=== PATIENT | male | born 1945 | race Caucasian/White ===

== ENCOUNTER → 2017-01-23 | Outpatient (CLI) | payer OTHER, MEDICARE ==
[~2017-01-23] MED LIST: COU2 PO; EZET10TA3 PO; LISI-327 PO; LORA1TAB PO; LORA2VIA3; LORAZEPAM; SIMV20TA2 PO; SOTA160T PO; [UNRECOGNIZED DRUG - OTHER]
--- NOTE | 2017-01-23 14:41 | RADRPT ---
PROCEDURE: US venous right lower extremity CLINICAL INDICATION: Right lower extremity pain. TECHNIQUE: Multiple longitudinal and transverse images of the right lower extremity veins were obt ained with kennedy scale and color Doppler imaging. 2D grayscale imaging with compression, color Doppl er flow, and augmentation was performed. The calf veins were interrogated as well. COMPARISON: None available. FINDINGS: The right common femoral, superficial femoral, and popliteal veins are normally compressible through out. There is normal color Doppler flow within the vessels and all the vessels are augmentable. The calf veins are visualized and are equally unremarkable. IMPRESSION: 1. No evidence of a deep vein thrombosis within the right lower extremity. RPTAT: GG .Darinel Mahoney MD, MD Date Time Electronically viewed and signed by .Darinel Mahoney MD, MD on 01/23/2017 14:41 .P/
== END | disposition home or self-care (01) ==
LOC: VAS 13:53
PROVIDERS: ATTEND Orthopaedic Surgery
DX: M79.661 Pain in right lower leg (principal)
CPT/HCPCS: 93971

== ENCOUNTER 2017-02-25 09:30 | Inpatient (IN) | payer OTHER, MEDICARE ==
[~2017-02-25] VITALS: Ht 175.3 cm; Wt 83.0 kg
[2017-03-04] VITALS (17 sets, daily range): BP systolic 91–123; BP diastolic 39–88; PULSE 58–79; RESP 15–18; Ht 175.3 cm; Wt 83.0 kg
[2017-03-04] MEDS ORDERED: ROCURONIUM 50 MG INJ ONE (07:00)
[2017-03-04] MEDS ORDERED: SUCCINYLCHOLINE CHLORIDE 100 MG/5 ML SYG IV ONE (07:00)
[2017-03-04] MEDS ORDERED: DESFLURANE 15 MIN ONE (07:00)
[2017-03-04] MEDS ORDERED: [UNRECOGNIZED DRUG - CODE] PO (11:30)
[2017-03-04] MEDS ORDERED: AMLO5TAB4 PO (11:30)
[2017-03-04] MEDS ORDERED: PANT40TA3 PO (11:31)
[2017-03-04] MEDS ORDERED: CEFAZOLIN 2 GM/50 ML (PMX) 50 ML IVPB ONE (12:00)
[2017-03-04] MEDS ORDERED: LACTATED RINGER'S 1,000 ML IV* SCH (12:00)
[2017-03-04 13:01] LABS: INR 0.96; PROTIME 12.8 Sec (12.2-14.2)
[2017-03-04 13:02] LABS: PARTIAL THROMBOPLASTIN TIME 33.2 Sec (25.0-35.0)
--- NOTE | 2017-03-04 13:19 | HPN ---
Date/Time of Note Date/Time of Note DATE: 03/04/17 TIME: 13:19 Interval H&P Admission Note Pt. seen H&P reviewed: No system changes LORE METZ PA-C Mar 04, 2017 13:19
[2017-03-04] MEDS ORDERED: DIPHENHYDRAMINE 50 MG INJ IV PRN ×2 (13:30→16:00)
[2017-03-04] MEDS ORDERED: HYDROmorphONE 0.2 MG/ML PCA IV SCH (13:30)
[2017-03-04] MEDS ORDERED: ONDANSETRON 4 MG INJ IV PRN ×2 (13:30→16:00)
[2017-03-04] MEDS ORDERED: BISACODYL 10 MG SUPP PR PRN (13:30)
[2017-03-04] MEDS ORDERED: CEPASTAT LOZENGE MT PRN (13:30)
[2017-03-04] MEDS ORDERED: CYCLOBENZAPRINE 10 MG TAB PO PRN (13:30)
[2017-03-04] MEDS ORDERED: ACETAMINOPHEN 325 MG TAB PO PRN (13:30)
[2017-03-04] MEDS ORDERED: AL HYDROX/MG HYDROX/SIMETH 30 ML CUP PO PRN (13:30)
[2017-03-04] MEDS ORDERED: NALOXONE (0.4 MG/ML) INJ IV PRN (13:30)
[2017-03-04] MEDS ORDERED: HYDROmorphONE 1 MG/ML SYG IV PRN (13:30)
[2017-03-04] MEDS ORDERED: ZOLPIDEM 5 MG TAB PO PRN (13:30)
[2017-03-04] MEDS ORDERED: BUPIVACAINE 0.25%/EPI (SDV) 10 ML INJ ONE (13:58)
[2017-03-04] MEDS ORDERED: BUPIVACAINE 0.25% (MPF) 30 ML INJ ONE (13:58)
[2017-03-04] MEDS ORDERED: PROPOFOL 20 ML ONE (14:02)
[2017-03-04] MEDS ORDERED: MIDAZOLAM 1 MG/ML 2 ML INJ ONE (14:02)
[2017-03-04] MEDS ORDERED: LIDOCAINE 1% (MDV) 20 ML INJ ONE (14:02)
[2017-03-04] MEDS ORDERED: CA CHLORIDE 10% 10 ML SYRINGE ONE (14:04)
[2017-03-04] MEDS ORDERED: THROMBIN 5000 UNIT VIAL ONE (14:04)
[2017-03-04] MEDS ORDERED: SURGIFOAM POWDER 1 GM KIT ONE (14:04)
[2017-03-04] MEDS ORDERED: POLYMYXIN/BACITRACIN 1L IRRIG IRR ONE (14:21)
[2017-03-04] MEDS ORDERED: THROMBIN 5000 UNIT VIAL TOP ONE (14:21)
[2017-03-04] MEDS ORDERED: CEFAZOLIN 1 GM INJ ONE (14:21)
[2017-03-04] MEDS ORDERED: BUPIVACAINE 0.25%/EPI (SDV) 10 ML INJ INJ ONE (14:21)
[2017-03-04] MEDS ORDERED: ONDANSETRON 4 MG INJ ONE (14:27)
[2017-03-04] MEDS ORDERED: DEXAMETHASONE 4 MG/ML 1 ML INJ ONE (14:27)
[2017-03-04] MEDS ORDERED: FAMOTIDINE 20 MG INJ ONE (14:27)
[2017-03-04] MEDS ORDERED: LABETALOL HCL 20MG INJ ONE (14:57)
[2017-03-04] MEDS ORDERED: hydrALAzine 20 MG INJ ONE (15:38)
[2017-03-04] MEDS ORDERED: SUGAMMADEX SODIUM 200 MG/2 ML VIAL IV ONE (15:40)
--- NOTE | 2017-03-04 15:43 | OPR ---
Date/Time of Note Date/Time of Note DATE: 03/04/17 TIME: 15:42 Operative Report Preoperative Diagnosis right L5-S1 HNP Postoperative Diagnosis right L5-S1 HNP Operation/Procedure Performed right L5-S1 discectomy Surgeon: ERIBERTO CALLES MD bacteriology research assistant: LORE METZ PA-C Anesthesia Type: general Estimated Blood Loss: 10 - 50 ml's Specimens disk Complications: no ERIBERTO CALLES MD Mar 04, 2017 15:43
[2017-03-04] MEDS ORDERED: hydrALAzine 20 MG INJ IV PRN (16:00)
[2017-03-04] MEDS ORDERED: LABETALOL HCL 20MG INJ IV PRN (16:00)
[2017-03-04] MEDS ORDERED: MEPERIDINE 25 MG INJ IV PRN ×2 (16:00)
[2017-03-04] MEDS ORDERED: HYDROmorphONE (0.2 MG/ML) 10ML SYG IV PRN ×2 (16:00)
--- NOTE | 2017-03-04 16:45 | OPR ---
DATE OF OPERATION: 03/04/2017 PREOPERATIVE DIAGNOSES: 1. History of L3-4, L4-5 instrumented fusion. 2. Right L5-S1 disc herniation. 3. Right lumbosacral radiculopathy. POSTOPERATIVE DIAGNOSES: 1. History of L3-4, L4-5 instrumented fusion. 2. Right L5-S1 disc herniation. 3. Right lumbosacral radiculopathy. PROCEDURES: 1. Right L5 hemilaminotomy with right L5-S1 lumbar microdiskectomy. 2. Lateral localizing film x2. 3. Use of operative microscope. 4. Use of C-arm fluoroscopy with interpretation without radiologist present. 5. Intraoperative neuro monitoring (1.5 hours). PRIMARY SURGEON: Dr. Hector Khan. POULTRY SCIENTIST: LETICIA Hodges. NEED FOR MEDICAL OFFICE REP: facility assistant was required to retract the neurovascular elements. FINDINGS: Neuro monitoring revealed right L5 amplitude down 40 percent, right S1 amplitude down to 60 percent, left S1 amplitude down 10 percent. At the end of the case the nerve signal returned to normal. The patient had right side extrusion at L5- S1. There was scar tissue in the area from the previous surgery. ESTIMATED BLOOD LOSS: Less than 30 cc. DRAINS: None. SPECIMENS: Disc. COMPLICATIONS: None. ANESTHESIOLOGIST: Dr. Santillan. ANESTHESIA: General. REASON FOR PROCEDURE: Procedure this is a 71-year-old gentleman who previously had undergone fusion from L3-L5. He developed a disc herniation at L5-S1 on the right, which became symptomatic. He developed weakness and failed conservative measures, therefore, recommended he undergo the above procedure. Preoperatively, discussed risks, benefits, alternatives, he understood and wished to proceed. DESCRIPTION OF THE PROCEDURE IN DETAIL: The patient was identified in the preoperative holding area, given Ancef antibiotics, an taken to the operating room, where he was successfully placed under general anesthesia. Neuro monitors were placed. Sequential compressive devices were applied. Neuro monitoring was utilized during the procedure for 1.5 hours to include SSEP, MEP, and EMG. This was performed by [employer]. Start time was 2:15 p.m. closure time was 3:45 p.m. Patient was placed in the prone position on Fernando frame. All bony prominences were well padded. The back was prepped and draped in usual sterile fashion. Spine needles were placed to confirm the correct levels seen with a lateral film. I then injected the paraspinal musculature with 0.25 percent Marcaine and epinephrine. I made an incision over the L5-S1 level using the patient's inferior aspect of his previous incision. Incision was taken down to the dorsal fascia. Next, I dissected out the inferior screw and L5 and identified lamina of L5 and S1. There was significant scar tissue from the previous surgery altering the field and adding 30 minutes to the procedure. Once I had exposed the lamina I placed a Kerrison it what was felt to be the L5 lamina. We took a repeat lateral film to confirm the correct level. Microscope was then brought in and a right-sided hemilaminotomy and partial medial facetectomy was performed. I had to perform a hemilaminotomy of the superior aspect of S1 in order to clear out the ligamentum flavum as it was adhered superiorly. With doing so I was able to identify the dura and the traversing nerve root, which my plastic surgery assistant retracted medially. I found a herniation and made an annulotomy followed by removal of the disc herniation. Once this was done, I irrigated the wound and disc space. Hemostasis was achieved with bipolar cautery and Surgifoam. The wound was irrigated once again. Valsalva maneuver was performed and there was no leak of CSF. I took the PPP injected this over the dura for hemostatic purposes. Retractors removed. I closed the deep fascia with number 1 Vicryl stitch. I closed the subcuticular tissue with 2- 0 Vicryl stitch. 4-0 Monocryl closure then performed. Dermabond was then applied. The patient was then awakened from anesthesia, and taken recovery in stable condition. Lap, sponge, and instrument counts correct x2. There were no apparent complications during the procedure. The patient will be admitted to [facility] for routine postoperative care to include pain control, antibiotics and physical therapy. Dictated By: Hector Khan MD /arin/salome /Document#: [id number] LISE
--- NOTE | 2017-03-04 16:52 | RADRPT ---
PROCEDURE: Lumbar spine radiographs CLINICAL INDICATION: LUMBAR MICRODISCECTOMY L5-S1. COMPARISON: None relevant listed. TECHNIQUE: Single lateral views. FINDINGS: Posterior cemented fusion of L3-L5 with intervening disk spaces. Surgical instruments had been plac ed over the L5-S2 level. IMPRESSION: Intraoperative examination used for localization purposes. RPTAT: PP Physician Chiqui Date Time Electronically viewed and signed by Zoe Epstein Physician on 03/04/2017 16:52 LG/
--- NOTE | 2017-03-04 16:54 | RADRPT ---
PROCEDURE: XR Lumbar Spine. CLINICAL INDICATION: Back pain. TECHNIQUE: Single lateral view of the lumbar spine COMPARISON: Radiograph performed a few hours earlier. FINDINGS: Surgical instruments overlie the L5-S1 level. Posterior cemented fusion of L3-L5 with rods and bilateral pedicle screws. Hip arthroplasty IMPRESSION: Examination use for intraoperative localization purposes. RPTAT: PP Zoe Epstein Physician Date Time Electronically viewed and signed by Zoe Epstein Physician on 03/04/2017 16:53 LG/
[2017-03-04] MEDS: D5W-0.45 NACL + KCL 20 MEQ 1,000 ML IV SCH ×2 (17:36→23:19)
[2017-03-04] MEDS: CEFAZOLIN 1 GM/50 ML (PMX) 50 ML IVPB SCH ×2 (17:36→21:15)
[2017-03-04] MEDS ORDERED: LORA1TAB PO (18:35)
[2017-03-04] MEDS: LORAZEPAM 1 MG TAB PO SCH (18:45)
--- NOTE | 2017-03-04 19:21 | CONS ---
Date/Time of Note Date/Time of Note DATE: 03/04/17 TIME: 19:19 Assessment/Plan Assessment/Plan Problems: (1) S/P lumbar microdiscectomy Status: Acute Comment: Stable postoperatively without complications. Continue care with rehabilitation and all medications (2) Benign prostatic hypertrophy Status: Chronic Comment: Continue on his outpatient regimen. Qualifiers: Prostatic enlargement morphology: unspecified morphology Lower urinary tract symptom presence: symptoms present Qualified Code: N40.1 - Benign prostatic hyperplasia with lower urinary tract symptoms, unspecified morphology (3) Gastroesophageal reflux disease Status: Chronic Comment: Stable on proton pump inhibitor therapy; continue Qualifiers: Esophagitis presence: without esophagitis Qualified Code: K21.9 - Gastroesophageal reflux disease without esophagitis (4) Hypertension Status: Acute Comment: Adequate control with current medication regimen-continue Qualifiers: Hypertension type: essential hypertension Qualified Code: I10 - Essential hypertension (5) ATRIAL FIBRILLATION Status: Acute Comment: Stable using sotalol. Will make sure that we do not miss any doses Consultation Date/Type/Reason Admit Date/Time Mar 04, 2017 at 09:58 Initial Consult Date 03/04/2017 Type of Consultation: Internal medicine Reason for Consultation Postoperative management of medical problems after lumbar microdiscectomy Referring Provider: ERIBERTO CLALES MD 24 HR Interval Summary Free Text/Dictation Charming vibrant male lying in bed fully conversant awake and alert oriented Constitutional: no complaints Detailed Summary Respiratory: no complaints Cardiovascular: no complaints Gastrointestinal: no complaints Genitourinary: no complaints Exam/Review of Systems Vital Signs Vitals Vital Signs Date Time Temp Pulse Resp B/P Pulse Ox O2 Delivery O2 Flow Rate FiO2 03/04/17 18:57 97.9 70 18 122/65 98 03/04/17 18:24 2.0 03/04/17 16:29 Nasal Cannula Exam Constitutional: alert, oriented Respiratory: clear to auscultation, normal air movement Cardiovascular: nl pulses, regular rate and rhythm Gastrointestinal: nl liver, spleen, non-tender, soft Results Results 24 hrs Laboratory Tests Test 03/04/17 12:22 Prothrombin Time 12.8 Prothrombin Time Ratio 1.0 INR International Normalized Ratio 0.96 Activated Partial Thromboplast Time 33.2 Medications Medications Current Medications Potassium Chloride/Dextrose/ Sod Cl (D5-1/2ns + KCl 20 Meq) 1,000 ml @ 100 mls/ hr Q10H IV Last administered on 03/04/17 17:36; Admin Dose 100 MLS/HR; Start at 13:19 Acetaminophen/ Hydrocodone Bitart ([place] (325)) 1 tab Q4H PRN PO PAIN LEVEL 1-5; Start 03/05/17 at 10:00 Acetaminophen/ Hydrocodone Bitart ([place] (10/325)) 2 tab Q4H PRN PO PAIN LEVEL 6-10; Start 03/05/17 at 10:00 Hydromorphone HCl 0.2 mg 0.2 mg Q1H PRN IV BREAKTHROUGH PAIN; Start 03/04/17 at 13:30 Cefazolin Sodium (Ancef 1 Gm/50 ml (Pmx)) 50 ml @ 100 mls/hr Q8H IVPB Last administered on 03/04/17 17:36; Admin Dose 100 MLS/HR; Start 03/04/17 at 13:30; Stop 03/05/17 at 05:59 Ondansetron HCl (Zofran Inj) 4 mg Q6H PRN IV NAUSEA AND/OR VOMITING; Start 03/04 at 13:30 Bisacodyl (Dulcolax Supp) 10 mg DAILY PRN [place] CONSTIPATION; Start 03/04/17 at 13: 30 Docusate Sodium (Colace) 100 mg BID PO ; Start 03/04/17 at 21:00 Al Hydrox/Mg Hydrox/Simethicone (Mag-Al Plus) 15 ml Q6H PRN PO CONSTIPATION/ DYSPEPSIA; Start 03/04/17 at 13:30 Acetaminophen (Tylenol Tab) 650 mg Q4H PRN PO COLLIER OR TEMP GREATER THAN 101.3F; Start 03/04/17 at 13:30 Cyclobenzaprine HCl (Flexeril) 10 mg TID PRN PO MUSCLE SPASMS; Start 03/04/17 at 13:30 Phenol (Cepastat Lozenge) 1 lozenge PRN PRN MT SORE THROAT; Start 03/04/17 at 13 :30 Diphenhydramine HCl (Benadryl) 25 mg Q6H PRN IV ITCHING; Start 03/04/17 at 13:30 Naloxone HCl (Narcan) 0.2 mg Q2M PRN IV RR 8 BREATHS/MIN OR LESS; Start at 13:30 Hydromorphone HCl (Dilaudid TEACHER PRIVATE) TEACHER PRIVATE to be started in PACU Q4PCA IV Last administered on 03/04/17 16:08; Admin Dose 6 MG; Start 03/04/17 at 13:30; Stop at 10:00 Miscellaneous Information 1. Hold TEACHER PRIVATE at 1,000... TEACHER PRIVATE IV ; Start 03/04/17 at 13: 30; Stop 03/05/17 at 10:00 Lorazepam (Ativan) 1 mg TID PO Last administered on 03/04/17 18:45; Admin Dose 1 MG; Start 03/04/17 at 18:45 Amlodipine Besylate (Norvasc) 5 mg DAILY PRN PO ELEVATED BLOOD PRESSURE; Start 03/04/17 at 19:30; Status UNV Pantoprazole (Protonix Tab) 40 mg DAILY PO ; Start 03/05/17 at 09:00; Status UNV Sotalol HCl (Betapace) 160 mg BID PO ; Start 03/04/17 at 21:00; Status UNV Lisinopril (Zestril) 20 mg DAILY PO ; Start 03/05/17 at 09:00; Status UNV Atorvastatin Calcium (Lipitor) 20 mg HS PO ; Start 03/04/17 at 21:00; Status UNV Hydrochlorothiazide (Hydrochlorothiazide) 12.5 mg DAILY PO ; Start 03/05/17 at 09 :00; Status UNV MICAELA ESCOBAR MD Mar 04, 2017 19:21
[2017-03-04] MEDS ORDERED: AMLODIPINE 5 MG TAB PO PRN (19:30)
[2017-03-04] MEDS ORDERED: LEVALBUTEROL (HFA) 15 GM INHALER INH PRN (19:30)
[2017-03-04] MEDS: DOCUSATE SODIUM 100 MG CAP PO SCH (20:18)
[2017-03-04] MEDS ORDERED: EZETIMIBE 10 MG TAB PO SCH (21:00)
[2017-03-04] MEDS ORDERED: ATORVASTATIN 20 MG TAB PO SCH (21:00)
[2017-03-04] MEDS: SOTALOL 80 MG TAB PO SCH (21:14)
[2017-03-05 00:15] VITALS: BP 123/62; RESP 18
[2017-03-05] MEDS: CEFAZOLIN 1 GM/50 ML (PMX) 50 ML IVPB SCH (04:59)
[2017-03-05 05:04] VITALS: BP 119/67; PULSE 63; RESP 18
[2017-03-05 05:15] LABS: BASOPHILS % 0.1 % (0.0-2.0); HEMOGLOBIN 13.6 g/dl (14.0-18.0); LYMPHOCYTES # 0.9 10^3/ul (0.8-2.9); MEAN CORPUSCULAR HEMOGLOBIN 30.4 pg (29.0-33.0); MEAN CORPUSCULAR VOLUME 89.5 fl (82.0-101.0); MEAN PLATELET VOLUME 9.7 fl (7.4-10.4); MONOCYTE # 0.6 10^3/ul (0.3-0.9); MONOCYTES % 4.3 % (0.0-11.0); NEUTROPHIL # 12.9 10^3/ul (1.6-7.5); PLATELET COUNT 249 10^3/UL (140-415); RED BLOOD COUNT 4.47 10^6/ul (4.70-6.10); RED CELL DISTRIBUTION WIDTH 13.1 % (11.5-14.5); WHITE BLOOD COUNT 14.5 10^3/ul (4.8-10.8)
[2017-03-05] MEDS: LORAZEPAM 1 MG TAB PO SCH (05:37)
[2017-03-05 05:44] LABS: CREATININE 0.92 mg/dl (0.61-1.24); MAGNESIUM 1.9 mg/dl (1.7-2.5); POTASSIUM 3.6 mmol/L (3.5-5.1)
[2017-03-05] MEDS ORDERED: EZETIMIBE 10 MG TAB PO SCH (07:20)
[2017-03-05 07:22] VITALS: BP 116/61; RESP 18
[2017-03-05] MEDS ORDERED: HYDROCHLOROTHIAZIDE 12.5 MG CAP PO SCH (09:00)
[2017-03-05] MEDS ORDERED: PANTOPRAZOLE (EC) 40 MG TAB PO SCH (09:00)
[2017-03-05] MEDS ORDERED: LISINOPRIL 20 MG TAB PO SCH (09:00)
[2017-03-05] MEDS: SOTALOL 80 MG TAB PO SCH (09:13)
[2017-03-05] MEDS: DOCUSATE SODIUM 100 MG CAP PO SCH (09:13)
[2017-03-05] MEDS: HYDROCODONE/APAP (10/325) TAB PO PRN ×2 (09:14→11:00)
[2017-03-05] MEDS: D5W-0.45 NACL + KCL 20 MEQ 1,000 ML IV SCH (09:19)
--- NOTE | 2017-03-05 09:45 | DS ---
Date/Time of Note Date/Time of Note DATE: 03/05/17 TIME: 09:44 Discharge Summary Admission/Discharge Info Admit Date/Time Mar 04, 2017 at 09:58 Discharge Date/Time 03/05/17 Discharge Diagnosis s/p lumbar discectomy Patient Condition: Good Hospital Course the patient was admitted to the [facility] after undergoing a lumbar discectomy. his post op course was uncomplicated. by post op day #1 he was deemed stable for discharge with follow-up arranged with the undersigned. Home Meds Reported Medications Lorazepam* (Lorazepam*) 1 Mg Tablet, 1 MG PO TID, #30 TAB 03/04/17 Pantoprazole* (Protonix*) 40 Mg Tablet.dr, 40 MG PO DAILY, TAB 03/04/17 Sotalol Hcl* (Sotalol AF*) 160 Mg Tablet, 160 MG PO BID, TAB 03/04/17 Amlodipine Besylate* (Norvasc*) 5 Mg Tablet, 5 MG PO DAILY Y for ELEVATED BLOOD PRESSURE, TAB 03/04/17 Ezetimibe* (Zetia*) 10 Mg Tablet, 10 MG PO PM, TAB 12/14/13 Simvastatin (Simvastatin) 20 Mg Tablet, 20 MG PO PM, TAB 12/14/13 Lisinopril-Hydrochlorothiazide (Lisinopril-HCTZ) 1 Tab Tablet, 1 TAB PO AM 12/14/13 Discontinued Reported Medications Warfarin Sod (Coumadin) 2 Mg Tablet, 2 MG PO PM, TAB 12/14/13 [Lorazepam] No Conflict Check, 1 MG DAILY 12/14/13 Sotalol Hcl* (Sotalol Hcl*) 160 Mg Tablet, 160 MG PO PM 12/14/13 Lorazepam* (Lorazepam*) 1 Mg Tablet, 1 MG PO DAILY AFTERNOON 12/14/13 [Pantothazol] No Conflict Check, 40 MG AM 12/14/13 Sotalol Hcl* (Sotalol Hcl*) 160 Mg Tablet, 160 MG PO AM 12/14/13 Lorazepam* (Ativan* IV) 2 Mg/Ml Vial, 1 MG AM, VIAL 12/14/13 Primary Care Provider Lui Garza MD Pending Labs Laboratory Tests Test 03/04/17 12:22 03/05/17 04:35 Prothrombin Time 12.8Sec (12.2-14.2) Prothrombin Time Ratio 1.0 INR International Normalized Ratio 0.96 Activated Partial Thromboplast Time 33.2Sec (25.0-35.0) White Blood Count 14.510^3/ul (4.8-10.8) Red Blood Count 4.4710^6/ul (4.70-6.10) Hemoglobin 13.6g/dl (14.0-18.0) Hematocrit 40.0% (42.0-52.0) Mean Corpuscular Volume 89.5fl (82.0-101.0) Mean Corpuscular Hemoglobin 30.4pg (29.0-33.0) Mean Corpuscular Hemoglobin Concent 34.0g/dl (32.0-37.0) Red Cell Distribution Width 13.1% (11.5-14.5) Platelet Count 29746^3/UL (140-415) Mean Platelet Volume 9.7fl (7.4-10.4) Neutrophils % 89.0% (39.0-77.0) Lymphocytes % 6.0% (15.0-51.0) Monocytes % 4.3% (0.0-11.0) Eosinophils % 0.0% (0.0-7.0) Basophils % 0.1% (0.0-2.0) Nucleated Red Blood Cells % 0.0/100WBC (0.0-0.0) Neutrophils # 12.910^3/ul (1.6-7.5) Lymphocytes # 0.910^3/ul (0.8-2.9) Monocytes # 0.610^3/ul (0.3-0.9) Eosinophils # 0.010^3/ul (0.0-0.5) Basophils # 0.010^3/ul (0.0-0.1) Nucleated Red Blood Cells # 0.010^3/ul (0.0-0.0) Sodium Level 141mmol/L (135-144) Potassium Level 3.6mmol/L (3.5-5.1) Chloride Level 99mmol/L (97-110) Carbon Dioxide Level 26mmol/L (21-31) Anion Gap 20 (8-16) Blood Urea Nitrogen 13mg/dl (7-20) Creatinine 0.92mg/dl (0.61-1.24) Glucose Level 143mg/dl (70-220) Calcium Level 9.0mg/dl (8.4-10.2) Magnesium Level 1.9mg/dl (1.7-2.5) ERIBERTO CALLES MD Mar 05, 2017 09:45
[2017-03-05] MEDS ORDERED: HYDROCODONE/APAP (10/325) TAB PO PRN (10:00)
== END 2017-03-05 12:47 | disposition home or self-care (01) | DRG 520 ==
LOC: EDSTATUS 09:30 → REC 03-04 09:58 → MS1 03-04 17:09
PROVIDERS: ADMIT Specialist; ATTEND Specialist
PROC: 0SB40ZZ Excision of Lumbosacral Disc, Open Approach (ICD-10-PCS; principal; 2017-03-04 14:00)
DX: M51.17 Intervertebral disc disorders with radiculopathy, lumbosacral region (principal); I48.91 Unspecified atrial fibrillation; I10 Essential (primary) hypertension; Z79.01 Long term (current) use of anticoagulants; Z96.641 Presence of right artificial hip joint; Z98.1 Arthrodesis status; Z87.891 Personal history of nicotine dependence; N40.0 Benign prostatic hyperplasia without lower urinary tract symptoms; K21.9 Gastro-esophageal reflux disease without esophagitis
CPT/HCPCS: 72020; 80048; 83735; 85025; 85610; 85730; 86999; 88304; 97163; J0360; J0690; J1100; J1170; J2250; J2405; J3010; J3480; J7999

== ENCOUNTER 2017-06-23 03:28 | Emergency (ER) | payer OTHER, MEDICARE ==
[~2017-06-23] VITALS: Ht 177.8 cm; Wt 85.7 kg
[~2017-06-23 03:28] MED LIST changes: +AMLO5TAB4 PO; -COU2 PO; -LORA2VIA3; -LORAZEPAM; +PANT40TA3 PO; -SOTA160T PO; +[UNRECOGNIZED DRUG - CODE] PO; -[UNRECOGNIZED DRUG - OTHER]
[2017-06-23 03:32] VITALS: Ht 177.8 cm; Wt 85.7 kg
[2017-06-23] MEDS ORDERED: LACTATED RINGER'S 500 ML IV ONE (04:00)
[2017-06-23 04:10] VITALS: BP 149/87; PULSE 61; RESP 17; TEMP 98.7
--- NOTE | 2017-06-23 04:14 | ERD ---
ER Documentation Chief Complaint Chief Complaint hypertension this morning, tingling sensation head, hx htn taking bp meds ROS All systems reviewed and are negative except as per history of present illness. Medications Home Meds Reported Medications Lorazepam* (Lorazepam*) 1 Mg Tablet, 1 MG PO TID, #30 TAB 03/04/17 Pantoprazole* (Protonix*) 40 Mg Tablet.dr, 40 MG PO DAILY, TAB 03/04/17 Sotalol Hcl* (Sotalol AF*) 160 Mg Tablet, 160 MG PO BID, TAB 03/04/17 Amlodipine Besylate* (Norvasc*) 5 Mg Tablet, 5 MG PO DAILY Y for ELEVATED BLOOD PRESSURE, TAB 03/04/17 Ezetimibe* (Zetia*) 10 Mg Tablet, 10 MG PO PM, TAB 12/14/13 Simvastatin (Simvastatin) 20 Mg Tablet, 20 MG PO PM, TAB 12/14/13 Lisinopril-Hydrochlorothiazide (Lisinopril-HCTZ) 1 Tab Tablet, 1 TAB PO AM 12/14/13 Allergies Allergies: Coded Allergies: erythromycin base (Verified Allergy, Severe, 03/04/17) meperidine (Verified Allergy, Mild, 03/04/17) propoxyphene (Verified Allergy, Mild, 03/04/17) doxycycline (Verified Allergy, Unknown, PALPITATIONS, 03/04/17) PMhx/Soc Paroxysmal atrial fibrillation, hypertension, dyslipidemia, benzodiazepine dependence, anxiety History of Surgery: Yes (R HIP , COLON RESECTION PARTIAL, APPY, HERNIA REPAIR, DECOMPRESSION FUSION ) Anesthesia Reaction: No Hx Neurological Disorder: No Hx Respiratory Disorders: No Hx Cardiac Disorders: Yes (ATRIAL FIBRILLATION ) Hx Psychiatric Problems: No Hx Miscellaneous Medical Probl: No Hx Alcohol Use: No Hx Substance Use: No Hx Tobacco Use: No FmHx Family History: No diabetes Physical Exam Vitals Vital Signs Date Time Temp Pulse Resp B/P Pulse Ox O2 Delivery O2 Flow Rate FiO2 06/23/17 03:32 97.8 78 20 173/83 100 Physical Exam GENERAL: Well-developed, well-nourished, well-hydrated, anxious, afebrile HEENT: Moist mucous membranes, pink conjunctiva, no cervical spine tenderness or step-off deformities, no goiter, no jaundice or icterus, extraocular movements intact without pain. No submandibular induration, and no pharyngeal erythema NEURO: Alert and oriented 3, cranial nerves II through XII intact bilaterally, pupils equal round reactive to light, no focal deficits or facial asymmetry, sensation intact distally Strength 5/5 in upper and lower extremities bilaterally CARDIAC: Regular rate and rhythm, no murmurs rubs or gallops LUNGS: Clear bilaterally no wheezing crackles or stridor ABDOMEN: Soft nontender, no guarding, no rigidity, no rebound, no psoas sign no obturator sign. Normoactive bowel sounds SKIN: Warm and dry to touch, no abrasions, contusions, or hematomas, no lacerations, no ecchymosis, no target lesions, and without ulcers EXTREMITIES: No clubbing cyanosis or edema, calves are bilaterally symmetrical, no Homans sign, no popliteal cord sign. Distal pulses equal and bilateral PSYCH: Anxious Results 24 hrs Current Medications Medications (Trade) Dose Ordered Sig/Chelo Route PRN Reason Start Time Stop Time Status Last Admin Dose Admin Lactated Ringer's (Lr) 500 ml @ 500 mls/hr Q1H ONCE IV 06/23/17 04:00 06/23/17 04:10 DC Procedures/MDM Patient was placed on cardiac cath rn rhythm strip revealed a sinus rhythm at about 60 bpm. EKG performed, read by me revealed a sinus bradycardia 59 bpm, normal axis, narrow QRS complex, no concerning ST elevations or depressions noted. Patient's blood pressure improved dramatically compared to what he stated it was at home. Systolic blood pressure was 149 mmHg here in the ED. I will defer further antihypertensive interventions here in the ER as patient's blood pressure has responded to the medications he used at home just prior to arrival. I recommended IV lorazepam for his insomnia and anxiety but he said he will be driving himself home and stated lorazepam would probably not help his symptoms anyway because he uses lorazepam orally 3 times a day. Differential diagnoses considered, included but not limited to acute coronary syndrome, pulmonary embolism, aortic dissection, abdominal aortic aneurysm, sepsis, stroke, meningitis, encephalitis, pneumonia, appendicitis, cholecystitis , bowel obstruction, pyelonephritis, nephrolithiasis, cystitis, as well as metabolic, hematologic, and electrolyte abnormalities. As well as abscess, cellulitis, fractures, and dislocations. Patient feels much better at this time, and vital signs are normal, symptoms have improved. I did give strict instructions to return to the ED if symptoms continue or worsen, patient will otherwise follow-up with primary care physician. Patient understood instructions and agreed to plan. Disclaimer: Inadvertent spelling and grammatical errors are likely due to EHR/ dictation software use and do not reflect on the overall quality of patient care. Also, please note that the electronic time recorded on this note does not necessarily reflect the actual time of the patient encounter. Departure Diagnosis: Primary Impression: Hypertension Hypertension type: essential hypertension Qualified Code: I10 - Essential hypertension Additional Impressions: Insomnia Insomnia type: primary Qualified Code: F51.01 - Primary insomnia Acute anxiety Condition: Good Patient Instructions: High Blood Pressure (Hypertension), Anxiety Reaction, Insomnia Referrals: JAVIER SCHMIDT MD (PCP) PATRICK CHATTERJEE MD Jun 23, 2017 04:14
== END 2017-06-23 04:10 | disposition home or self-care (01) ==
LOC: E/R 03:28
DX: I10 Essential (primary) hypertension (principal); F51.01 Primary insomnia; F41.9 Anxiety disorder, unspecified
CPT/HCPCS: 93005; J7120